=== PATIENT | female | born 1990 | race Two or more races ===

== ENCOUNTER 2024-11-14 11:01 | Emergency (ER) | payer OTHER ==
[~2024-11-14] VITALS: Ht 157.5 cm; Wt 67.6 kg
[2024-11-14] MEDS ORDERED: METHYLPREDNISOLONE SOD SUCC 125 MG VIAL IV STA (12:50)
[2024-11-14] MEDS ORDERED: LEVALBUTEROL HCL 1.25 MG/3 ML SOLUTION IH STA (12:50)
[2024-11-14] MEDS ORDERED: BUDESONIDE 0.5 MG/2 ML AMPUL.NEB IH STA (12:51)
[2024-11-14] MEDS ORDERED: HYDROCODONE/CHLORPHEN P-STIREX 5 ML ML PO STA (12:51)
[2024-11-14] MEDS ORDERED: METHYLPREDNISOLONE SOD SUCC 125 MG VIAL ONE (13:16)
[2024-11-14 13:21] LABS: HEMATOCRIT 38.2 % (36.0-45.00); HEMOGLOBIN 12.8 g/dL (12.0-15.00); MEAN CELL VOLUME 78.7 fL (80.00-100.00); MEAN CORPUSCULAR HEMOGLOBIN 26.4 pg (27.00-32.0); MEAN CORPUSCULAR HGB CONC 33.6 g/dl (32.0-36.0); PLATELET COUNT 266 K/uL (150-450); RED BLOOD COUNT 4.85 M/uL (4.00-6.00); RED CELL DISTRIBUTION WIDTH 13.8 % (11.5-14.5)
[2024-11-14] MEDS ORDERED: LEVALBUTEROL HCL 1.25 MG/3 ML SOLUTION IH ONE (14:06)
[2024-11-14] MEDS ORDERED: BUDESONIDE 0.5 MG/2 ML AMPUL.NEB IH ONE (14:06)
== END 2024-11-14 16:09 | disposition home or self-care (01) ==
LOC: ER 11:03
PROVIDERS: General Practice
DX: J45.909 Unspecified asthma, uncomplicated (principal); Z20.822 Contact with and (suspected) exposure to COVID-19

== ENCOUNTER 2025-04-21 16:30 | Emergency (ER) | payer OTHER ==
[~2025-04-21] VITALS: Ht 160 cm; Wt 62.1 kg
[2025-04-21] MEDS ORDERED: CETIRIZINE HCL 5 MG/5 ML ML PO ONE (19:45)
[2025-04-21] MEDS ORDERED: GUAIFENESIN/DEXTROMETHORPHAN 100MG/10ML BLIST.PACK PO ONE (19:45)
[2025-04-21] MEDS ORDERED: CEFTRIAXONE SODIUM 1,000 MG VIAL IM ONE (19:45)
[2025-04-21] MEDS ORDERED: CETIRIZINE HCL 5MG/5ML BLIST.PACK PO ONE (19:45)
[2025-04-21] MEDS ORDERED: GUAIFEN/DEXTROMETHORPHAN/PE 10 ML BLIST.PACK PO ONE (19:45)
[2025-04-21] MEDS ORDERED: CEFTRIAXONE SODIUM 1,000 MG VIAL ONE (19:46)
[2025-04-21 20:41] LABS: COVID-19 AG NEGATIVE (NEGATIVE)
[2025-04-21] MEDS ORDERED: ZYRTEC10 MG PO (22:01)
[2025-04-21] MEDS ORDERED: TUSSIN DM LIQU118 ML PO (22:01)
[2025-04-21] MEDS ORDERED: AMOX-CLAV 875-1 EAC1 PO (22:01)
[2025-04-21] MEDS ORDERED: KETOROLAC TROMETHAMINE 15 MG VIAL IM ONE (22:15)
[2025-04-21] MEDS ORDERED: KETOROLAC TROMETHAMINE 30 MG VIAL ONE (22:20)
== END 2025-04-21 22:33 | disposition home or self-care (01) ==
LOC: ER 16:50
PROVIDERS: Emergency Medicine
DX: H66.92 Otitis media, unspecified, left ear (principal); J06.9 Acute upper respiratory infection, unspecified; Z20.822 Contact with and (suspected) exposure to COVID-19